=== PATIENT | female | born 1950 | race Caucasian/White ===

== ENCOUNTER 2024-12-16 09:12 | Inpatient (IN) | payer OTHER ==
--- NOTE | 2024-12-16 10:20 | RAD REPORT ---
Procedure: Chest Single View HISTORY: Cough COMPARISON: none FINDINGS: The lungs appear clear of acute infiltrate. No significant pleural effusion noted. The heart is borderline enlarged. . IMPRESSION: No acute abnormality is displayed.
[2024-12-16 10:26] LABS: Absolute Lymphocytes (CBC) 0.4 K/uL (0.7-4.9); Absolute Neutrophil 5.1 K/uL (1.8-8.0); Basophils % 0.3 % (0-1.3); Eosinophils % 0.1 % (0-4.4); Hematocrit 43.1 % (36.0-45.0); Hemoglobin 14.7 g/dL (12.0-15.0); Lymphocytes % 6.6 % (15.3-44.8); MCH 32.7 pg (27.0-35.0); MCHC 34.1 g/dL (32.0-36.0); MCV 95.6 fL (80-100); MPV 10.9 fL (7.6-11.3); Monocytes % 0.6 % (3.3-12.3); Neutrophils % 92.4 % (41.7-73.7); Platelets 141 thou/uL (152-406); Red Cell Distribution Width 13.1 % (12.1-15.2)
[2024-12-16] MEDS ORDERED: NA CHLORIDE 0.9% 1,000 ML ONE ×2 (10:33→18:18)
[2024-12-16 10:36] LABS: PT Prothrombin Time 13.3 SECONDS (10-13.0); PTT, Activated Partial Thromb 24.4 SECONDS (27.2-37.4); Protime INR 1.18
[2024-12-16 10:47] LABS: Albumin 3.6 g/dL (3.4-5.0); Anion Gap 10.5 mEq/L (5.0-15.0); Bilirubin Total 1.3 mg/dL (0.2-1.0); Globulin 3.7 g/dL (2.3-3.5); Potassium 3.5 mEq/L (3.5-5.1); Protein, Total 7.3 g/dL (6.4-8.2)
[2024-12-16 10:50] LABS: Influenza A Ag Negative; Influenza B Ag Negative
[2024-12-16 10:53] LABS: SARS-CoV-2 Antigen Rapid Res Positive (Negative)
--- NOTE | 2024-12-16 11:08 | EDPHYS ---
Physician Documentation [facility] Name: Kenya De Los Santos Age: 74 yrs Sex: Female : 1950 Arrival Date: 12/16/2024 Time: 09:06 Bed 2 Private MD: ED Physician Dominic Garcia HPI: 12/16 09:37 This 74 yrs old Unknown Female presents to ER via EMS with complaints of Flu Symptoms. rn 09:37 Patient reports 3 days of feeling ill, reports subjective fever and chills, associated rn with cough and congestion and now since yesterday vomiting and diarrhea. Denies abdominal pain. Denies shortness of breath. No hemoptysis. No blood in stool or emesis.. Onset: The symptoms/episode began/occurred 3 day(s) ago. Severity of symptoms: At their worst the symptoms were moderate in the emergency department the symptoms are unchanged. The patient has not experienced similar symptoms in the past. The patient has not recently seen a physician. Historical: - Allergies: :18 No Known Allergies; bp - Immunization history:: Adult Immunizations up to date. - Infectious Disease History:: Denies. - Social history:: Smoking status: Patient denies any tobacco usage or history of. - Family history:: not pertinent. - Hospitalizations: : No recent hospitalization is reported. ROS: 09:37 Constitutional: Positive for subjective fever and chills Cardiovascular: Negative for rn chest pain, palpitations, and edema, Respiratory: Negative for shortness of breath, cough, wheezing, and pleuritic chest pain, Abdomen/GI: Negative for abdominal pain, positive for vomiting and diarrhea MS/Extremity: Negative for injury and deformity, Skin: Negative for injury, rash, and discoloration, Neuro: Positive for generalized weakness Exam: 09:37 Constitutional: This is a well developed, well nourished patient who is awake, alert, rn and in no acute distress. ENT: Dry mucous membranes Cardiovascular: Tachycardic, regular Respiratory: Speaking full sentences, unlabored. No increased work of breathing, no retractions or nasal flaring. Abdomen/GI: Soft, no focal tenderness or distention. Neuro: Awake and alert, GCS 15 10:56 ECG was reviewed by the Attending Physician. rn Vital Signs: 09:17 BP 164 / 80; Pulse 133; Resp 12; Temp 98; Pulse Ox 94% on R/A; bp 10:30 BP 147 / 82; Pulse 123; Resp 20; Pulse Ox 92% on R/A; bp MDM: 09:09 Medical Screening Exam initiated rn 11:06 Differential Diagnosis Viral illness, flu, COVID, dehydration, enteritis or colitis.. rn 11:06 Data reviewed: vital signs, nurses notes, lab test result(s), EKG, radiologic studies, rn plain films, and as a result, I will admit patient. Consideration of Admission/Observation Patient was admitted/placed on observation. Escalation of care including admission/observation considered. Counseling: I had a detailed discussion with the patient and/or guardian regarding the historical points, exam findings, and any diagnostic results supporting the discharge/admit diagnosis, lab results, radiology results, the need for further work-up and treatment in the hospital. Response to treatment: the patient's symptoms have mildly improved after treatment, and as a result, I will admit patient. ED course: Patient COVID-positive, elevated lactic acid, still tachycardic and feels weak. Chest x-ray images negative for pneumonia per my interpretation. Will admit to hospitalist service for further hydration and care.. 12/16 09:19 Order name: Blood Culture Adult (2) rn 12/16 09:19 Order name: CBC with Diff; Complete Time: 10:49 12/16 09:19 Order name: CMP; Complete Time: 10:49 12/16 09:19 Order name: Lactate w/ 2H reflex if indic.; Complete Time: 10:53 12/16 09:19 Order name: Protime (+inr); Complete Time: 10:49 rn 12/16 09:19 Order name: Ptt, Activated; Complete Time: 10:49 rn 12/16 09:19 Order name: Urinalysis w/ reflexes; Complete Time: 12:15 rn 12/16 09:19 Order name: COVID-19 Ag + Flu A+B Ag; Complete Time: 11:06 rn 12/16 10:53 Order name: Ghost Lactate-NO COLLECT Timer EDCT 12/16 17:30 Order name: Glucose, Ancillary Testing EDCT 12/16 09:19 Order name: Chest Single View XRAY; Complete Time: 10:32 rn 12/16 09:19 Order name: Accucheck; Complete Time: 09:21 rn 12/16 09:19 Order name: Cardiac monitoring; Complete Time: rn 12/16 09:19 Order name: EKG - Nurse/Tech; Complete Time: rn 12/16 09:19 Order name: IV Saline Lock - Large Bore; Complete Time: rn 12/16 09:19 Order name: Labs collected and sent; Complete Time: rn 12/16 09:19 Order name: O2 Per Protocol; Complete Time: rn 12/16 09:19 Order name: O2 Sat Monitoring; Complete Time: rn 12/16 09:19 Order name: Vital Signs; Complete Time: rn EC:56 Rate is 118 beats/min. Rhythm is regular. QRS [place] is Normal. NV interval is normal. rn QRS interval is normal. No Q waves. T waves are Normal. No ST changes noted. Clinical impression: Sinus tachycardia. Interpreted by me. Reviewed by me. Administered Medications: 10:35 Drug: NS 0.9% IV 1000 ml IV at 1000 ml once; to be given as a bolus over 60 minutes bp Route: IV; Rate: 1000 ml; Site: left antecubital; 18:33 Follow up: IV Status: Completed infusion bp 18:33 Not Given (Patient Refused): ondansetron 4 mg IVP once; over 2 minutes bp Disposition Summary: 12/16/24 11:07 Hospitalization Ordered Notes: Hospitalization Status: Observation rn Provider: Sancho Aguilar rn Condition: Stable rn Problem: new rn Symptoms: have improved rn Bed/Room Type: Standard rn Location: Telemetry/MedSurg (observation)(12/16/24 19:45) rv1 Room Assignment: 403(12/16/24 19:45) rv1 Diagnosis - SARS-associated coronavirus as the cause of diseases classified elsewhere rn - Muscle weakness (generalized) rn - Lactic acidosis rn Forms: - Medication Reconciliation Form rn - SBAR form rn - Leadership Thank You Letter rn Signatures: Dispatcher [employer] Dominic Traore MD MD rn Attema, Lee, MUKESH-C BUSINESS OPERATIONS MANAGER-Cla1 Tu Ty RN RN bp Lavern Andrade RN RN Ness Vo rv1 Corrections: (The following items were deleted from the chart) 09:20 09:20 BLOOD CULTURE*+BA.LAB.BRZ ordered. EDMS EDMS 09:20 09:20 CBC+H.LAB.BRZ ordered. EDMS EDMS 09:20 09:20 COMPREHENSIVE METABOLIC PANEL+C.LAB.BRZ ordered. EDMS EDMS 09:20 09:20 LACTATE+C.LAB.BRZ ordered. EDMS EDMS 09:20 09:20 PROTIME (+INR)+COAG.LAB.BRZ ordered. EDMS EDMS 09:20 09:20 PTT, ACTIVATED+COAG.LAB.BRZ ordered. EDMS EDMS 09:20 09:20 Urinalysis+U.LAB.BRZ ordered. EDMS EDMS 09:20 09:20 COVID-19 Ag + Flu A+B Ag+I.LAB.BRZ ordered. EDMS EDMS 09:20 09:20 Chest Single View+RAD.RAD.BRZ ordered. EDMS EDMS 10:56 10:56 Rate is 118 beats/min. Rhythm is regular. QRS [place] is Normal. NV interval is rn normal. QRS interval is normal. QT interval is normal. No Q waves. T waves are Normal. No ST changes noted. Clinical impression: Sinus tachycardia. Interpreted by me. Reviewed by me. haily 13:11 11:07 Telemetry/MedSurg (observation) haily kb3 13:11 11:07 haily kb3 19:45 13:11 [facility] ER HOLD kb3 rv1 19:45 13:11 ERHOLD- kb3 rv1
--- NOTE | 2024-12-16 11:08 | ER ---
Nurse's Notes [facility] Name: Kenya De Los Santos Age: 74 yrs Sex: Female : 1950 Arrival Date: 12/16/2024 Time: 09:06 Bed 2 Private MD: Diagnosis: SARS-associated coronavirus as the cause of diseases classified elsewhere;Muscle weakness (generalized);Lactic acidosis Presentation: 12/16 09:17 Chief complaint: EMS states: FLU-LIKE S/S x3 DAYS. Coronavirus screen: At this time, bp the client does not indicate any symptoms associated with coronavirus-19. Ebola Screen: No symptoms or risks identified at this time. Initial Sepsis Screen: Does the patient meet any 2 criteria? HR > 90 bpm. No. Patient's initial sepsis screen is negative. Does the patient have a suspected source of infection? No. Patient's initial sepsis screen is negative. Risk Assessment: Do you want to hurt yourself or someone else? Patient reports no desire to harm self or others. Note [place]. Onset of symptoms is unknown. Care prior to arrival: IV initiated. 20 GA, in the right antecubital area, Glucose check: 200. Care prior to arrival: Medication(s) given: zofran 4 mg. 09:17 Method Of Arrival: EMS: [facility] bp 09:17 Acuity: CONNOR 3 bp Triage Assessment: 09:18 General: Appears in no apparent distress. ill, Behavior is calm, cooperative, bp appropriate for age. Pain: Denies pain. EENT: No deficits noted. Neuro: Reports GENERALIZED WEAKNESS. Cardiovascular: Rhythm is sinus tachycardia. Respiratory: No deficits noted. GI: Reports diarrhea, nausea. : No signs and/or symptoms were reported regarding the genitourinary system. Derm: No deficits noted. Musculoskeletal: No deficits noted. Historical: - Allergies: 09:18 No Known Allergies; bp - Immunization history:: Adult Immunizations up to date. - Infectious Disease History:: Denies. - Social history:: Smoking status: Patient denies any tobacco usage or history of. - Family history:: not pertinent. - Hospitalizations: : No recent hospitalization is reported. Screenin:21 [facility] ED Fall Risk Assessment (Adult) History of falling in the last 3 months, bp including since admission No falls in past 3 months (0 pts) Confusion or Disorientation No (0 pts) Intoxicated or Sedated No (0 pts) Impaired Gait No (0 pts) Mobility Assist Device Used No (0 pt) Altered Elimination No (0 pt) Score/Fall Risk Level 0 - 2 = Low Risk Oriented to surroundings. Abuse screen: Denies threats or abuse. Denies injuries from another. Nutritional screening: No deficits noted. Tuberculosis screening: No symptoms or risk factors identified. Assessment: 09:20 General: Appears in no apparent distress. ill, Behavior is calm, cooperative, bp appropriate for age. 10:31 Reassessment: Patient appears in no apparent distress at this time. Patient is alert, bp oriented x 3, equal unlabored respirations, skin warm/dry/pink. Vital Signs: 09:17 BP 164 / 80; Pulse 133; Resp 12; Temp 98; Pulse Ox 94% on R/A; bp 10:30 BP 147 / 82; Pulse 123; Resp 20; Pulse Ox 92% on R/A; bp ED Course: 09:06 Patient arrived in ED. bd 09:08 Dominic Garcia MD is Attending Physician. rn 09:17 Tu Ty, DREW is Primary Nurse. bp 09:18 Triage completed. bp 09:18 Arm band placed on. bp 09:20 Maintain EMS IV. Dressing intact. Good blood return noted. Site clean \T\ dry. Gauge \T\ bp site: 20 RAC. Flushed with 10 mL NS. 09:21 Patient has correct armband on for positive identification. bp 09:40 Warm blanket given. Cleaned of incontinence. rs6 09:42 Chest Single View XRAY In Process Unspecified. EDMS 10:34 COVID-19 Ag + Flu A+B Ag Sent. rs6 10:34 Blood Culture Adult (2) Sent. rs6 10:34 CBC with Diff Sent. rs6 10:34 CMP Sent. rs6 10:34 Lactate w/ 2H reflex if indic. Sent. rs6 10:34 Protime (+inr) Sent. rs6 10:34 Ptt, Activated Sent. rs6 11:07 Sancho Aguilar is Hospitalizing Provider. rn 14:13 No provider procedures requiring assistance completed. Patient admitted, IV remains in bp place. Administered Medications: 10:35 Drug: NS 0.9% IV 1000 ml IV at 1000 ml once; to be given as a bolus over 60 minutes bp Route: IV; Rate: 1000 ml; Site: left antecubital; 18:33 Follow up: IV Status: Completed infusion bp 18:33 Not Given (Patient Refused): ondansetron 4 mg IVP once; over 2 minutes bp Medication: 09:20 VIS not applicable for this client. bp Outcome: 11:07 Decision to Hospitalize by Provider. rn 14:13 Admitted to ER Hold. Please see [facility] for further documentation. bp 14:13 Condition: stable 14:13 Instructed on the need for admit, 21:24 Patient left the ED. vc1 Signatures: Dispatcher [employer] EDMS Melisa Man Roman, MD MD rn Peltier, Brian, RN RN Melania Castillo RN RN vc1 Francisco Javier Holden rs6
[2024-12-16 11:41] LABS: Specific Gravity 1.012 (1.005-1.030); Sqamous Epithelial <5 /HPF (None Seen); Urine Bacteria <20 /HPF (<20); Urine Bilirubin NEGATIVE (Negative); Urine Blood 1+ (Negative); Urine Clarity Turbid (Clear); Urine Color Light-Yellow (Yellow); Urine Culture Reflex Order NOT NEEDED; Urine Glucose TRACE (Negative); Urine Ketones NEGATIVE (Negative); Urine Microscopic Reflex YN ORDER UMIC; Urine Mucus Slight /HPF (None Seen); Urine Nitrite NEGATIVE (Negative); Urine Protein TRACE (Negative); Urine RBC <5 /HPF (None Seen); Urine Urobilinogen Normal (Normal); Urine WBC <5 /HPF (<5); Urine pH 5.5 (5.0-7.0)
--- NOTE | 2024-12-16 11:59 | P.HP ---
Certification for Inpatient Patient admitted to: Observation With expected LOS: <2 Midnights Patient will require the following post-hospital care: None Practitioner: I am a practitioner with admitting privileges, knowledge of patient current condition, hospital course, and medical plan of care. Services: Services provided to patient in accordance with Admission requirements found in Title 42 Section 412.3 of the Code of Federal Regulations Patient History Date of Service: 12/16/24 Reason for admission: Weakness, dehydration, COVID History of Present Illness: 74-year-old female with history of hypothyroidism and vbj-wsmgzgr-ndhykouqt diabetes presents to the emergency department with chief complaint of chills, weakness. She be feeling ill on Sunday the and has progressively gotten worse since then. Today she was unable to get up on her own. Patient evaluated in the emergency department her labs were significant for a lactate of 2.4 white blood count of 5.5 viral swabs positive for COVID. She is still quite weak, tachycardic with a heart rate around 110-115. He provide wishes to admit under observation for dehydration, weakness, COVID viral illness - Past Medical/Surgical History -: NIDDM -: Hypothyroidism -: Appendectomy, tubal ligation, shoulder surgery Psychosocial/ Personal History: Lives at home alone - Family History Family History: Reviewed- Non-Contributory - Social History Smoking Status: Never smoker Alcohol use: No CD- Drugs: No Caffeine use: Yes Place of Residence: Home Review of Systems 10-point ROS is otherwise unremarkable General: Chills, Weakness, Malaise Physical Examination - Physical Exam General: Alert, In no apparent distress, Oriented x3 HEENT: Atraumatic, PERRLA, Mucous membr. moist/pink, Scleral icterus Neck: Supple, 2+ carotid pulse no bruit, No LAD, Without JVD or thyroid abnormality Respiratory: Clear to auscultation bilaterally, Normal air movement Cardiovascular: Regular rate/rhythm, Normal S1 S2 Gastrointestinal: Normal bowel sounds, No tenderness Musculoskeletal: No tenderness Integumentary: No rashes Neurological: Normal speech, Normal strength at 5/5 x4 extr, Normal tone - Studies Laboratory Data (last 24 hrs) 12/16/24 12/16/24 12/16/24 10:12 10:00 10:00 WBC 5.50 Hgb 14.7 Hct 43.1 Plt Count 141 L PT 13.3 H INR 1.18 APTT 24.4 L Sodium 138 Potassium 3.5 BUN 9 Creatinine 0.95 Glucose 173 H Total Bilirubin 1.3 H AST 39 H ALT 49 Alkaline Phosphatase 78 Assessment and Plan - Plan Assessment: COVID-19 viral illness Dehydration Weakness Diabetes mellitus type [id number]-vggixxrtj Hypothyroidism Plan: COVID-19 viral illness Dehydration Weakness IV fluids PT consultation As needed antipyretics/antiemetics Repeat chemistries in the morning Diabetes mellitus type 4msx-[id number]-ygjhpojwj ACHS Accu-Chek, sliding scale insulin Hypothyroidism Resume home medication when confirmed DVT PPX: Lovenox Code status: Full Discharge Plan: Home Plan to discharge in: 24 Hours - Advance Directives Does patient have a Living Will: No Does patient have a Durable POA for Healthcare: No - Code Status/Comfort Care Code Status Assessed: Yes (Full code) Critical Care: No Time Spent Managing Pts Care (In Minutes): 65
[2024-12-16 15:17] VITALS: BMI 29.9
[2024-12-16] MEDS ORDERED: ONDANSETRON 4 MG/2 ML VIAL IV PRN (15:24)
[2024-12-16] MEDS: NA CHLORIDE 0.9% 1,000 ML IV SCH (15:24)
[2024-12-16] MEDS ORDERED: ACETAMINOPHEN 325 MG TABLET PO PRN (15:24)
[2024-12-16] MEDS: INSULIN REGULAR (HUMAN) 100 UNIT/ML SQ SCH (16:30)
[2024-12-16] MEDS: BENZONATATE 100 MG CAP PO PRN (21:58)
[2024-12-17] MEDS: dexAMETHasone 4 MG/ML VIAL IV ONE (01:38)
[2024-12-17] MEDS: GUAIFENESIN/CODEINE 5ML UCUP PO PRN (01:38)
[2024-12-17] MEDS: VANCOMYCIN 1 GM in NA CHLORIDE 0.9% 250 ML IVPB SCH (04:01)
--- NOTE | 2024-12-17 04:07 | P.PN ---
Date of Service: 12/17/24 Notified by nursing staff that patient with gram-negative bacteremia. 4 out of 4 bottles are positive. Unknown sources patient's urine analysis was negative and chest x-ray is unremarkable. Patient presented with COVID infection and patient has had been coughing. Will get a sputum sample to rule out a gram- negative upper respiratory infection. Will give patient a dose of Rocephin IV piggyback x 1 and then repeat. Will check a procalcitonin level and repeat blood cultures in AM. May need to get an echocardiogram to further evaluate. Infectious disease consult placed and patient changed to inpatient hospitalization.
[2024-12-17] MEDS: CEFTRIAXONE 1,000 MG in NA CHLORIDE 0.9% 50 ML IVPB ONE (04:41)
[2024-12-17] MEDS ORDERED: dexAMETHasone 4 MG/ML VIAL IV ONE (05:00)
[2024-12-17 06:44] LABS: Absolute Lymphocytes (CBC) 0.8 K/uL (0.7-4.9); Absolute Monocytes 0.5 K/uL (0.1-1.3); Absolute Neutrophil 6.2 K/uL (1.8-8.0); Basophils % 0.4 % (0-1.3); Hemoglobin 12.3 g/dL (12.0-15.0); Lymphocytes % 10.1 % (15.3-44.8); MCH 32.6 pg (27.0-35.0); MCHC 34.1 g/dL (32.0-36.0); MCV 95.7 fL (80-100); Monocytes % 6.2 % (3.3-12.3); Neutrophils % 83.3 % (41.7-73.7); Platelets 122 thou/uL (152-406); RBC Red Blood Cell Count 3.77 M/uL (3.86-4.86); Red Cell Distribution Width 13.4 % (12.1-15.2)
[2024-12-17 06:45] LABS: Anion Gap 11.6 mEq/L (5.0-15.0); Potassium 3.6 mEq/L (3.5-5.1)
[2024-12-17] MEDS: ENOXAPARIN 40 MG/0.4 ML SQ SCH (09:08)
[2024-12-17] MEDS: CHLORASEPTIC LOZENGES PO PRN (09:21)
--- NOTE | 2024-12-17 11:30 | RAD REPORT ---
EXAM: Chest Abdomen Pelvis W Cont CLINICAL INDICATION: Female, 74 years fevers, Gram negative bacteremia, diarrhea, cough TECHNIQUE: CT chest, abdomen and pelvis was performed, with IV contrast, as per department protocol. Axial, sagittal and coronal reconstructions were obtained. One or more of the following dose reduction techniques were used: Automated exposure control, adjustment of the mA and/or kV according to the patient size, and/or iterative reconstruction. Unless otherwise specified, incidental findings do not require dedicated imaging follow-up. [id number]. COMPARISON: Yesterday's chest radiograph FINDINGS: ---THORAX--- LOWER NECK AND CHEST WALL: Visualized thyroid gland and soft tissues are normal. LUNGS AND AIRWAYS: Airways are clear. No evidence of airspace or interstitial process.No dominant or clearly suspicious nodule identified. PLEURA: No pleural effusion. No pneumothorax. MEDIASTINUM AND LYMPH NODES: No mediastinal mass or fluid collection. Normal size mediastinal, hilar, and axillary lymph nodes. Small hiatal hernia. Mild distal esophageal wall thickening. THORACIC AORTA: No thoracic aortic aneurysm. PULMONARY ARTERIES: Caliber is within normal limits. HEART: Normal heart size. Moderate coronary artery calcifications.No significant pericardial effusion . ---ABDOMEN/PELVIS--- UPPER GI: No significant abnormality. LIVER: No significant focal abnormality. GALLBLADDER/BILE DUCTS: No biliary ductal dilatation.? PANCREAS: No mass, ductal dilation, or poli-pancreatic fluid. SPLEEN: Unremarkable. ADRENALS: No adrenal masses. KIDNEYS AND URETERS: No hydronephrosis.Low density and/or too small to characterize renal lesions whi ch are statistically benign.No renal calculi.Left renal scarring. ABDOMINAL AORTA AND OTHER VESSELS: Mild atherosclerotic changes. PERITONEUM: No abnormal free fluid. No free air. LYMPH NODES: No pathologic lymphadenopathy. ABDOMINAL WALL: Unremarkable SMALL BOWEL/COLON: Small bowel has normal course and caliber. No colonic wall thickening or pericolon ic inflammatory changes.Nonvisualized appendix but no secondary signs of acute appendicitis. Mild diverticulosis without diverticulitis. URINARY BLADDER: Underdistended but grossly unremarkable. REPRODUCTIVE ORGANS: No pathologic process. ---COMBINED--- MUSCULOSKELETAL: No acute or suspicious osseous abnormality. ADDITIONAL FINDINGS: None. IMPRESSION: No acute findings within the chest, abdomen, or pelvis. Specifically, no source of infection identifi ed. Incidental findings as noted above.
--- NOTE | 2024-12-17 11:47 | P.CNS ---
Date of Consult: 12/17/24 Reason for consult: bacteremia HPI: Patient with hx of hypothyroidism and DM presents to the ER due to feeling fever, chills and weakness for 2 days. Report her temp was over 100 F at home. Other symptoms includes cough and congestion. Denies abdominal pain or SOB. Report symptoms did not get better and was unable to get up on her own. She was positive for COVID at the ER with serum lactate of 2.4 and gram negative bacteremia. Ct chest abdomen and chest xray unremarkable. - Past Medical/Surgical History -: NIDDM -: Hypothyroidism -: Appendectomy, tubal ligation, shoulder surgery Psychosocial/ Personal History: Lives at home alone - Family History Family History: Reviewed- Non-Contributory - Social History Smoking Status: Never smoker Alcohol use: No CD- Drugs: No Caffeine use: Yes Place of Residence: Home Review of Systems 10-point ROS is otherwise unremarkable unless stated in HPI General: Chills, Weakness, Malaise Physical Examination - Physical Exam General: Alert, In no apparent distress, Oriented x3 HEENT: Atraumatic, PERRLA, Neck: Supple, No JVD Respiratory: nonlabored breathing, 4 L O2 NC Cardiovascular: Regular rate/rhythm, Normal S1 S2 Gastrointestinal: Normal bowel sounds, No tenderness Musculoskeletal: No tenderness Integumentary: No rashes Neurological: AOx3 - Studies Laboratory Data (last 24 hrs) WBC 7.4, Hgb 12.3, Plt count 122, BUN 11, Creatinine 0.76 Temp Pulse Resp BP Pulse Ox 98.2 F 64 16 109/57 L 99 12/17/24 16:00 12/17/24 16:00 12/17/24 16:00 12/17/24 16:00 12/17/24 16:00 Assessment and Plan Sepsis (improving) due to gram negative Bacteremia COVID-19 viral illness Thrombocytopenia Diabetes mellitus type [id number]-[id number] Hypothyroidism continue empiric abx rocephin daily monitor wbc and fever trend pending repeat blood culture will see patient as needed Thank you for consult case discussed and in agreement with Dr Yanes
--- NOTE | 2024-12-17 12:36 | EKG ---
Test Date: 2024-12-16 Test Time: 10:47:44 Hydraulic Press Operator: TONEY MEASUREMENT RESULTS: Intervals: Rate: 117 [place]: QRSD: 60 QT: 430 QTc: 599 [place]: P: AK: QRS: 7 T: 72 INTERPRETIVE STATEMENTS: Sinus tachycardia Low voltage QRS Prolonged QT Abnormal ECG No previous ECG available for comparison Electronically Signed On 12-17-24 12:35:49 CDT by Josh Hernadez
--- NOTE | 2024-12-17 12:37 | P.PN ---
Date of Service: 12/17/24 Subjective: Blood cultures resulted positive overnight gram-negative rods Patient states she is feeling a little bit better today No acute events overnight Persistent cough ROS: 10 point ROS as noted above, otherwise negative Physical exam GEN: Alert, oriented, NAD HEENT: Normal conjunctiva, sclera anicteric CV: Regular rate and rhythm, no edema Pulm: Nonlabored respirations on room air ABD: Soft, nontender, nondistended MSK: No joint tenderness Integumentary: No rashes Neuro: Normal speech, normal affect Vitals reviewed Assessment: Gram-negative bacteremia COVID-19 viral illness Dehydration Weakness Diabetes mellitus type 1sts-kfnhsdh-tljcqsech Hypothyroidism Plan: Gram-negative bacteremia COVID-[address] chest abdomen pelvis IV contrast negative for acute findings/no infectious findings ID consulted, repeat blood cultures ordered IV antibioticsRocephin Await culture finalization Continue supportive care for COVID-19 viral illness PT consultation Diabetes mellitus type 1ued-mbwdjyo-fgoortywm ACHS Accu-Chek, sliding scale insulin Hypothyroidism Resume home medication when confirmed DVT PPX: Lovenox Code status: Full Discharge Plan: Home Plan to discharge in: 24 Hours Time Spent Managing Pts Care (In Minutes): 35
[2024-12-17] MEDS ORDERED: CEFTRIAXONE 1,000 MG in NA CHLORIDE 0.9% 50 ML IVPB SCH (16:00)
[2024-12-18 04:49] LABS: Absolute Basophils 0.1 K/uL (0-0.5); Absolute Monocytes 0.7 K/uL (0.1-1.3); Absolute Neutrophil 4.1 K/uL (1.8-8.0); Basophils % 0.8 % (0-1.3); Eosinophils % 0.7 % (0-4.4); Hematocrit 39.4 % (36.0-45.0); Hemoglobin 13.5 g/dL (12.0-15.0); Lymphocytes % 29.6 % (15.3-44.8); MCH 32.9 pg (27.0-35.0); MCHC 34.3 g/dL (32.0-36.0); MCV 95.7 fL (80-100); MPV 11.6 fL (7.6-11.3); Monocytes % 10.2 % (3.3-12.3); Neutrophils % 58.7 % (41.7-73.7); Nucleated Red Blood Cells % 0.1 % (0-0); Platelets 143 thou/uL (152-406); RBC Red Blood Cell Count 4.12 M/uL (3.86-4.86); Red Cell Distribution Width 13.4 % (12.1-15.2)
[2024-12-18] MEDS: ALPRAZOLAM 0.25 MG TABLET PO PRN (04:52)
[2024-12-18] MEDS: CEFTRIAXONE 1,000 MG in NA CHLORIDE 0.9% 50 ML IVPB SCH (04:53)
[2024-12-18 05:02] LABS: Anion Gap 8.7 mEq/L (5.0-15.0); Potassium 3.7 mEq/L (3.5-5.1)
[2024-12-18] MEDS ORDERED: D10W 125 ML IV PRN (09:09)
[2024-12-18] MEDS ORDERED: GLUCAGON 1 MG/VIAL IM PRN (09:09)
--- NOTE | 2024-12-18 09:16 | P.PN ---
Date of Service: 12/18/24 Subjective: Had panic attack overnight Anxious/emotional this morning Blood cultures returned E. coli ROS: 10 point ROS as noted above, otherwise negative Physical exam GEN: Alert, oriented, NAD HEENT: Normal conjunctiva, sclera anicteric CV: Regular rate and rhythm, no edema Pulm: Nonlabored respirations on room air ABD: Soft, nontender, nondistended MSK: No joint tenderness Integumentary: No rashes Neuro: Normal speech, normal affect Vitals reviewed Assessment: Gram-negative bacteremia COVID-19 viral illness Dehydration Weakness Diabetes mellitus type 6pog-uipamle-sisgspnoa Hypothyroidism Plan: Gram-negative bacteremia COVID-[address] chest abdomen pelvis IV contrast negative for acute findings/no infectious findings ID consulted, repeat blood cultures ordered IV antibioticsRocephin First set of blood cultures returned with E. coli Sensitive to Rocephin, continue Same for blood cultures no growth so far Await recommendations from ID regarding IV versus p.o. antibiotics and duration of treatment Continue supportive care for COVID-19 viral illness PT consultation Diabetes mellitus type 8ene-cruxzjy-nsiexdied ACHS Accu-Chek, sliding scale insulin Hypothyroidism Resume home medication when confirmed DVT PPX: Lovenox Code status: Full Discharge Plan: Home Plan to discharge in: 48 hours Time Spent Managing Pts Care (In Minutes): 35
[2024-12-18] MEDS: POTASSIUM CL SA 10 MEQ TAB PO ONE (10:24)
--- NOTE | 2024-12-18 11:59 | EKG ---
Test Date: 2024-12-16 Test Time: 10:49:04 Process Checker: TONEY MEASUREMENT RESULTS: Intervals: Rate: 118 ND: QRSD: 58 QT: 424 QTc: 594 [place]: P: ND: QRS: 4 T: 68 INTERPRETIVE STATEMENTS: Sinus tachycardia Cannot rule out Anterior infarct, age undetermined Prolonged QT Abnormal ECG Compared to ECG 12/16/2024 10:47:44 Myocardial infarct finding now present Electronically Signed On 12-18-24 11:57:06 CDT by Josh Hernadez
[2024-12-18] MEDS: clonazePAM 0.5 MG TAB PO PRN (13:21)
--- NOTE | 2024-12-18 22:45 | PN ---
Subjective: The patient is lying in bed. No new acute event. Chart reviewed. Objective: Vital Signs: Temperature 97.8, pulse 65, respirations 18, blood pressure 142/87. Lungs: Basal crackles. Heart: S1, S2. Regular. Abdomen: Soft, nontender. Bowel sounds present. Extremities: No edema. Laboratory Data: WBC 6.9, hemoglobin 13.5, platelets 143. BUN of 17, creatinine 0.7. Assessment And Plan: 1. Escherichia coli bacteremia. The patient is currently being treated with Rocephin. Repeat blood cultures done on 12/17, pending. 2. Thrombocytopenia. 3. Recent COVID-19 viral illness. 4. Diabetes mellitus. 5. Hypothyroidism. Continue current antibiotics for 2 weeks. Can be switched to oral on discharge. If the patient has no diarrhea or nausea or vomiting, consider adding probiotic. We will follow the patient as needed. NF/MODL Voice ID: [id number] Report ID: [id number]
[2024-12-19 05:06] LABS: Absolute Eosinophils 0.1 K/uL (0-0.5); Absolute Lymphocytes (CBC) 2.4 K/uL (0.7-4.9); Absolute Monocytes 0.6 K/uL (0.1-1.3); Absolute Neutrophil 3.2 K/uL (1.8-8.0); Basophils % 0.7 % (0-1.3); Eosinophils % 0.9 % (0-4.4); Hematocrit 36.3 % (36.0-45.0); Hemoglobin 12.5 g/dL (12.0-15.0); Lymphocytes % 37.7 % (15.3-44.8); MCH 32.8 pg (27.0-35.0); MCHC 34.5 g/dL (32.0-36.0); MCV 95.2 fL (80-100); MPV 11.1 fL (7.6-11.3); Monocytes % 9.9 % (3.3-12.3); Neutrophils % 50.8 % (41.7-73.7); Nucleated Red Blood Cells % 0.2 % (0-0); Platelets 141 thou/uL (152-406); RBC Red Blood Cell Count 3.81 M/uL (3.86-4.86); Red Cell Distribution Width 13.3 % (12.1-15.2)
[2024-12-19 05:24] LABS: Anion Gap 12.6 mEq/L (5.0-15.0); Potassium 3.6 mEq/L (3.5-5.1)
[2024-12-19] MEDS: POTASSIUM CL SA 10 MEQ TAB PO ONE (09:23)
[2024-12-19 11:47] VITALS: O2SAT 98
[2024-12-19 12:29] VITALS: BP 125/58; TEMP 98.3
--- NOTE | 2024-12-19 15:10 | P.DS ---
Admission Date: 12/17/24 Discharge Date: 12/19/24 Disposition: ROUTINE DISCHARGE Discharge Condition: GOOD Reason for Admission: Weakness, dehydration, COVID Brief History of Present Illness: 74-year-old female with history of hypothyroidism and xst-[id number]-ifflnygno diabetes presents to the emergency department with chief complaint of chills, weakness. She be feeling ill on Sunday the and has progressively gotten worse since then. Today she was unable to get up on her own. Patient evaluated in the emergency department her labs were significant for a lactate of 2.4 white blood count of 5.5 viral swabs positive for COVID. She is still quite weak, tachycardic with a heart rate around 110-115. He provide wishes to admit under observation for dehydration, weakness, COVID viral illness Hospital Course: Assessment: Gram-negative bacteremia COVID-19 viral illness Dehydration Weakness Diabetes mellitus type [id number] Hypothyroidism Patient was initially hospitalized for generalized weakness, tachycardia, COVID- 19 viral illness. Blood cultures were obtained in the ER and the next day ended up preliminary growing gram-negative rods. She was started on Rocephin and cultures ended up speciated with E. coli. CT chest abdomen pelvis with IV contrast was performed which did not demonstrate any infectious findings, patient has remained afebrile with a normal white blood cell count during her hospitalization. Case were discussed with infectious disease who recommends a total of 2 weeks of IV antibiotics with daily IV Rocephin. Midline catheter has been placed and home antibiotics have been arranged. Patient stable for discharge with outpatient antibiotics, home health. Blood cultures were obtained which showed no growth in 24 hours, UA was also negative for urinary tract infection Recommend follow-up with primary care doctor in 2 to 3 weeks Continue other home medications as previously prescribed Vital Signs/Physical Exam: Temp Pulse Resp BP Pulse Ox 98.3 F 59 16 125/58 L 99 12/19/24 12:00 12/19/24 12:00 12/19/24 12:00 12/19/24 12:12/19/24 12:00 General: Alert, In no apparent distress, Oriented x3 HEENT: Atraumatic, PERRLA Neck: Supple, JVD not distended Respiratory: Clear to auscultation bilaterally, Normal air movement Cardiovascular: Regular rate/rhythm, Normal S1 S2 Gastrointestinal: Normal bowel sounds, No tenderness Musculoskeletal: No tenderness Integumentary: No rashes Neurological: Normal speech, Normal affect Laboratory Data at Discharge: WBC 6.30 thou/uL (4.3-10.9) 12/19/24 04:40 Hgb 12.5 g/dL (12.0-15.0) 12/19/24 04:40 Hct 36.3 % (36.0-45.0) 12/19/24 04:40 Plt Count 141 thou/uL (152-406) L 12/19/24 04:40 PT 13.3 SECONDS (10-13.0) H 12/16/24 10:12 INR 1.18 12/16/24 10:12 APTT 24.4 SECONDS (27.2-37.4) L 12/16/24 10:12 Sodium 142 mEq/L (136-145) 12/19/24 04:40 Potassium 3.6 mEq/L (3.5-5.1) 12/19/24 04:40 BUN 14 mg/dL (7-18) 12/19/24 04:40 Creatinine 0.75 mg/dL (0.55-1.02) 12/19/24 04:40 Glucose 130 mg/dL (74-106) H 12/19/24 04:40 Total Bilirubin 1.3 mg/dL (0.2-1.0) H 12/16/24 10:00 AST 39 U/L (15-37) H 12/16/24 10:00 ALT 49 U/L (13-56) 12/16/24 10:00 Alkaline Phosphatase 78 U/L (45-117) 12/16/24 10:00 Home Medications: Glimepiride 2 mg PO DAILY 12/17/24 Levothyroxine [Synthroid*] 0.112 mg PO DAILY 12/17/24 Physician Discharge Instructions: Patient was initially hospitalized for generalized weakness, tachycardia, COVID- 19 viral illness. Blood cultures were obtained in the ER and the next day ended up preliminary growing gram-negative rods. She was started on Rocephin and cultures ended up speciated with E. coli. CT chest abdomen pelvis with IV contrast was performed which did not demonstrate any infectious findings, patient has remained afebrile with a normal white blood cell count during her hospitalization. Case were discussed with infectious disease who recommends a total of 2 weeks of IV antibiotics with daily IV Rocephin. Midline catheter has been placed and home antibiotics have been arranged. Patient stable for discharge with outpatient antibiotics, home health. Recommend follow-up with primary care doctor in 2 to 3 weeks Continue other home medications as previously prescribed Diet: Regular Activity: Ad kelsey Followup: NONE,NONE [Primary Care Provider] - 1-2 Weeks Time spent managing pt's care (in minutes): 46
== END 2024-12-19 16:10 | disposition home health service (06) | DRG 871 ==
LOC: ER 09:12 → ERHOLD 12:03 → 4TH 20:52 → OBSVTOIN 12-17 04:06
PROVIDERS: ADMIT Internal Medicine; ATTEND Internal Medicine
DX: A41.51 Sepsis due to Escherichia coli [E. coli] (principal); U07.1 COVID-19; E87.20 Acidosis, unspecified; E86.0 Dehydration; E03.9 Hypothyroidism, unspecified; E11.9 Type 2 diabetes mellitus without complications; D69.6 Thrombocytopenia, unspecified; Z60.2 Problems related to living alone
CPT/HCPCS: 36415; 71045; 71260; 74177; 80048; 80053; 81001; 82947; 83605; 84145; 85025; 85610; 85730; 87040; 87077; 87186; 87205; 87428; 93005; 96360; 96361; 97116; 97161; 99285; G0378; J0696; J1100; J1650; J1815; J7030; Q9967